=== PATIENT | male | born 1965 | race Hispanic/Latino ===

== ENCOUNTER 2021-05-15 06:43 | Emergency (ER) | payer OTHER ==
[2021-05-15] MEDS ORDERED: cloNIDine 0.1 MG TAB ONE (07:24)
[2021-05-15] MEDS ORDERED: Acetaminophen 500 MG TAB ONE (07:32)
== END 2021-05-15 08:10 ==
LOC: ERS 06:43
DX: S02.2XXA Fracture of nasal bones, initial encounter for closed fracture (principal); R04.0 Epistaxis; I10 Essential (primary) hypertension; Z79.1 Long term (current) use of non-steroidal anti-inflammatories (NSAID); Z79.899 Other long term (current) drug therapy; W50.0XXA Accidental hit or strike by another person, initial encounter; Y92.149 Unspecified place in prison as the place of occurrence of the external cause
CPT/HCPCS: 70160